=== PATIENT | male | born 1970 | race Caucasian/White ===

== ENCOUNTER 2016-12-13 20:14 | Day surgery (SDC) | payer OTHER, SELFPAY ==
[~2016-12-13 20:14] MED LIST: ISOVUE-370 76%-LOCM 1 ML ONE
[2016-12-13 20:34] LABS: Hematocrit 48.7 % (42.0-52.0); Mean Platelet Volume 8.2 fL (7.4-10.4); White Blood Cell (WBC) Count 17.3 thou/uL (4.8-10.8)
[2016-12-13 20:43] LABS: PTT 24.5 SEC (22.9-36.1); Prothrombin Time 12.6 SEC (12.0-14.7)
[2016-12-13 20:44] LABS: ALT (SGPT) 41 U/L (8-55); AST (SGOT) 21 U/L (5-34); Alkaline Phosphatase 66 U/L (40-150); Anion Gap 15 mmol/L (10-20); BUN (Urea Nitrogen) 16 mg/dL (8.9-20.6); Bilirubin, Total 0.3 mg/dL (0.2-1.2); Calc. Creatinine Clearance 0 mL/min (70-130); Calcium 9.6 mg/dL (7.8-10.44); Carbon Dioxide 22 mmol/L (22-29); Chloride 108 mmol/L (98-107); Estimated GFR-MDRD Greater than 90; Protein, Total 7.3 g/dL (6.0-8.3)
[2016-12-13 20:49] LABS: Troponin I Less than 0.010 ng/mL (< 0.028)
[2016-12-13 20:52] LABS: Magnesium 2.2 mg/dL (1.6-2.6); Neutrophil 61 % (42-75)
[2016-12-13] MEDS ORDERED: Nitroglycerin 100MG/250ML BOT 250 ML ONE (20:52)
[2016-12-13] MEDS ORDERED: Heparin 10,000 UNITS/1 ML VIAL ONE (20:52)
[2016-12-13] MEDS ORDERED: Nitroglycerin 50 MG/250 ML BOT 250 ML ONE (20:58)
[2016-12-13] MEDS ORDERED: Morphine Sulfate 2 MG/ML SYRINGE ONE (21:00)
[2016-12-13] MEDS ORDERED: Ondansetron HCl/PF 4 MG/2 ML Vial ONE (21:02)
--- NOTE | 2016-12-13 21:07 | HP ---
DATE OF CONSULTATION: 12/13/2016 CHIEF COMPLAINT: Acute myocardial infarction. HISTORY OF PRESENT ILLNESS: Mr. Schneider is a 46-year-old gentleman with no significant past medical hi story, recently presented with chest pain. His and he states he has been having intermittent p ain for the last several weeks, then it became constant today about 2 hours prior to presentation. He then proceeded to the emergency room where he was found to have ST segment elevation myocardial i nfarction. PAST MEDICAL HISTORY: None. ALLERGIES: None. MEDICATIONS: None except for vitamins. SOCIAL HISTORY: Positive 1 pack tobacco use. He is currently with 3 children. REVIEW OF SYSTEMS: Ten-point review of systems is reviewed and as above, otherwise negative. PHYSICAL EXAMINATION: GENERAL: Patient is a pleasant male who is in no acute distress. The patient appears his stated ag e. VITAL SIGNS: Blood pressure 170/80, pulse 80, respirations 20. NEUROLOGIC: The patient is alert and oriented times 3 with no focal neurologic deficits. HEENT: Sclerae without icterus. Mouth has moist mucous membranes with normal pallor. NECK: No JVD. Carotid upstroke brisk. No bruits bilaterally. LUNGS: Clear to auscultation with unlabored respirations. BACK: No scoliosis or kyphosis. CARDIAC: Regular rate and rhythm with normal S1 and S2. No S3 or S4 noted. No significant rubs, m urmurs, thrills, or gallops noted throughout the precordium. PMI is not displaced. There is no par asternal heave. ABDOMEN: Soft, nontender, nondistended. No peritoneal signs present. No hepatosplenomegaly. No a bnormal striae. EXTREMITIES: A 2+ femoral and 2+ dorsalis pedis pulses. No cyanosis, clubbing, or edema. SKIN: No gross abnormalities. PERTINENT LABORATORY DATA: Hemoglobin 16.3, creatinine 0.8. IMAGING: EKG normal sinus rhythm with ST segment elevation noted inferiorly with reciprocal changes . IMPRESSION: 1. Acute myocardial infarction. 2. Tobacco abuse. RECOMMENDATIONS: At this point, I would feel the need to proceed with urgent coronary angiography p jessa PCI. I discussed the procedure with both he and his . The risks of the procedure were also discussed. The risks of the procedure include but are not limited to the following: , stroke , [place], need for emergency surgery, loss of limb, bleeding, and infection, as well as a reaction to th e dye causing kidney failure and needing long-term dialysis. I also discussed the risks of PCI to i nclude all of the above including coronary dissection and perforation in addition to acute stent thr ombosis and restenosis. All questions about the procedure were answered. Given the above, the nga ent agreed to proceed with coronary angiography and possible PCI. All questions about the procedure were answered. Given the above, the patient agreed to proceed with the above procedure. He did un dergo a CT scan of his chest and abdomen due to intermittent abdominal pain, which was negative for dissection. Further recommendations were pending the above.
[2016-12-13] MEDS ORDERED: Adenosine 6 MG/2 ML VIAL ONE (21:09)
--- NOTE | 2016-12-13 21:10 | RAD ---
RADIOGRAPH CHEST 1 VIEW: 12/13/16 HISTORY: 46-year-old male with acute chest pain. FINDINGS: There are no air space densities, pulmonary edema, pneumothorax, or cardiomegaly. The lateral costo phrenic angles are sharp. IMPRESSION: No acute cardiopulmonary findings. bettina [] POS: THERON
--- NOTE | 2016-12-13 21:28 | CT ---
CTA THORAX WITH CONTRAST CTA ABDOMEN WITH CONTRAST: 12/13/16 (Computed Tomographic Angiography, chest(noncoronary) with contrast material, and image postprocessi ng) (Computed Tomographic Angiography, abdomen with contrast material, and image postprocessing) HISTORY: 46-year-old male with acute chest pain. TECHNIQUE: IV injection of iodinated contrast: administered Arterial phase bolus chasing technique. Scan acquisition from top of top of aortic arch to iliac crests. Sagittal and coronal 3D MIP reconstructions. FINDINGS: There is no thoracic or abdominal aortic aneurysm, rupture, or dissection. Atherosclerotic plaque is visualized throughout the lower one third of the abdominal aorta, and at the bilateral common iliac arteries. No cardiomegaly, pericardial effusion, pleural effusion, or pneumothorax. The lungs are c lear. No mediastinal or hilar lymphadenopathy. The contrast within the pulmonary arteries is too dil ilya to evaluate for pulmonary thromboembolism. No definite pathology identified, within the limitat ions of an [id number] scan, involving the liver, pancreas, adrenals, kidneys or spleen. No acute findings of the visualized small intestine and large intestine. Pelvis was not included. Mildl y enlarged lymph nodes of the michelle hepatis, nonspecific. IMPRESSION: 1. No aortic dissection, rupture or aneurysm. 2. Atherosclerosis of distal abdominal aorta and common iliac arteries. bettina[] POS: THERON
[2016-12-13] MEDS ORDERED: Mag-Al 1200 mg/1200 mg/30 ML UDCUP PO PRN (21:29)
[2016-12-13] MEDS ORDERED: Milk Of Magnesia 30 ML UDCUP PO PRN (21:29)
[2016-12-13] MEDS ORDERED: traMADol HCl 50 MG TAB PO PRN (21:29)
[2016-12-13] MEDS ORDERED: cloNIDine HCl 0.1 MG TAB PO PRN (21:29)
[2016-12-13] MEDS ORDERED: Zolpidem Tartrate 5 MG TAB PO PRN (21:29)
[2016-12-13] MEDS ORDERED: Sodium Chloride 0.9% 1,000 ML IV SCH (21:30)
[2016-12-13] MEDS ORDERED: Clopidogrel Bisulfate 300 MG TAB ONE (21:34)
[2016-12-13 22:22] VITALS: BMI 31.4
[2016-12-13] MEDS ORDERED: Heparin 10,000 UNITS/ 10 ML VIAL ONE (22:38)
[2016-12-14 00:07] LABS: Troponin I 42.922 ng/mL (< 0.028)
[2016-12-14 04:28] LABS: #Basophils 0.1 thou/uL (0.0-0.2); #Eosinphils 0.3 thou/uL (0.0-0.7); #Lymphocytes 3.4 thou/uL (1.20-3.40); #Monocytes 1.2 thou/uL (0.11-0.59); #Neutrophils 10.7 thou/uL (1.40-6.50); %Basophils 0.4 % (0.0-1.0); %Eosinophils 1.6 % (0.0-10.0); %Lymphocytes 21.9 % (21.0-51.0); %Monocytes 7.9 % (0.0-10.0); Mean Platelet Volume 8.4 fL (7.4-10.4); Red Blood Cell (RBC) Count 4.85 mill/uL (4.70-6.10); White Blood Cell (WBC) Count 15.7 thou/uL (4.8-10.8)
[2016-12-14 04:49] LABS: ALT (SGPT) 82 U/L (8-55); AST (SGOT) 375 U/L (5-34); Alkaline Phosphatase 66 U/L (40-150); Anion Gap 12 mmol/L (10-20); BUN (Urea Nitrogen) 14 mg/dL (8.9-20.6); Bilirubin, Total 0.3 mg/dL (0.2-1.2); Calc. Creatinine Clearance 189 mL/min (70-130); Calcium 9.1 mg/dL (7.8-10.44); Carbon Dioxide 23 mmol/L (22-29); Chloride 108 mmol/L (98-107); Estimated GFR-MDRD Greater than 90; Globulin 2.7 g/dL (2.4-3.5); Protein, Total 6.7 g/dL (6.0-8.3)
[2016-12-14] MEDS: Acetaminophen/Codeine 30-300mg Tablet PO PRN ×3 (05:06→21:44)
[2016-12-14 05:13] LABS: Troponin I 111.371 ng/mL (< 0.028)
[2016-12-14] MEDS ORDERED: Carvedilol 3.125 MG TAB PO SCH ×2 (08:00→10:25)
--- NOTE | 2016-12-14 08:12 | CON ---
DATE OF CONSULTATION: 12/14/2016 SERVICE: Pulmonary Medicine REASON FOR CONSULTATION: ICU patient. HISTORY OF PRESENT ILLNESS: The patient is a 46-year-old white male with past medical history really significant for nothing. That being said, he was diagnosed with hypertension a long time ago, but assume that was because he was in pain at that time and has subsequently discontinued that medication. He does not have a routine follow up with any physicians. In his usual state of health, he started having an abrupt onset of bilateral under arm chest discomfort. He could find no way of getting comfortable. As such, he called 911 and he presented to the emergency department. EKG was performed demonstrating an acute myocardial infarction. He was brought to the [facility] and occluded RCA was identified and subsequently stented. The patient's pain improved dramatically immediately after this stent was placed. That being said , he still continues to have some degree of the same chest discomfort. PAST MEDICAL HISTORY: Hypertension. PAST SURGICAL HISTORY: None. SOCIAL HISTORY: He uses a pack of cigarettes on a daily basis and has a 30-pack -year history of smoking. He is and has 3 children. He denies any significant alcohol or illicit drug use at this time. FAMILY HISTORY: Noncontributory. ALLERGIES: No known drug allergies. MEDICATIONS: List of inpatient medications was reviewed. REVIEW OF SYSTEMS: General, head, ears, eyes, nose, throat, cardiovascular, respiratory, GI, , musculoskeletal, neurologic and skin is negative except as mentioned in the HPI. PHYSICAL EXAMINATION: VITAL SIGNS: Afebrile, blood pressure 158/104, pulse 79, respirations 20, saturation 97% on room air. GENERAL: Patient is awake, alert, in no apparent distress. LUNGS: Excellent air entry. I do not appreciate prolonged expiratory phase, wheezing, rhonchi or crackles. HEART: Normal rate, regular. ABDOMEN: Soft, nontender, nondistended, bowel sounds positive. MUSCULOSKELETAL: No cyanosis or clubbing. No pitting in the bilateral lower extremities. NEUROLOGIC: Grossly nonfocal. LABORATORY DATA: WBC 5.7, hemoglobin 14.9, platelets 312,000. INR 0.9. Basic metabolic profile is essentially unremarkable. AST and ALT are both trending upward. Troponin has increased to 203. Lactate 2.7 and down trending. IMAGIN. Chest x-ray demonstrates low lung volumes which accentuated interstitial markings. I do not appreciate any acute cardiopulmonary abnormalities. Coronal angle is sharp. 1. CT dissection protocol demonstrates no abnormality of the aorta. There is atherosclerosis of the abdominal aorta and common iliac arteries. ASSESSMENT: 1. Acute myocardial infarction, s/p PCI to RCA. 2. Cardiogenic shock, resolved. 3. Shock liver, likely to improve over the next 24-48 hours. 4. Hypertension. PLAN: The patient will be monitored in the ICU in the perioperative period. From a purely respiratory perspective, the patient is stable for transition to the telemetry unit. That being said, because of ongoing chest discomfort it would be reasonable to leave him in the ICU for an additional 24 hours if Cardiology is so inclined. I will continue to follow if he remains in this location. CARLOS ALBERTO
[2016-12-14] MEDS: Clopidogrel Bisulfate 75 MG TAB PO SCH (08:37)
[2016-12-14] MEDS ORDERED: FLU VACC QS2017-18 36 mo. & older 0.5 ML SYRINGE IM ONE (09:00)
[2016-12-14] MEDS ORDERED: Lisinopril 2.5 MG TAB PO SCH ×2 (09:00→10:26)
[2016-12-14] MEDS ORDERED: Lisinopril 5 MG TAB PO SCH (10:30)
[2016-12-14] MEDS ORDERED: Carvedilol 6.25 MG TAB PO SCH (10:30)
[2016-12-14] MEDS: Carvedilol 6.25 MG TAB PO SCH (17:12)
[2016-12-14] MEDS ORDERED: Atorvastatin Calcium 40 MG TAB PO SCH (21:00)
[2016-12-15 05:58] LABS: #Basophils 0.1 thou/uL (0.0-0.2); #Eosinphils 0.4 thou/uL (0.0-0.7); #Lymphocytes 3.9 thou/uL (1.20-3.40); #Neutrophils 7.3 thou/uL (1.40-6.50); %Basophils 0.6 % (0.0-1.0); %Lymphocytes 30.7 % (21.0-51.0); %Monocytes 7.8 % (0.0-10.0); Hematocrit 42.7 % (42.0-52.0); Mean Platelet Volume 8.3 fL (7.4-10.4); Red Blood Cell (RBC) Count 4.58 mill/uL (4.70-6.10); White Blood Cell (WBC) Count 12.6 thou/uL (4.8-10.8)
[2016-12-15 06:23] LABS: ALT (SGPT) 56 U/L (8-55); AST (SGOT) 103 U/L (5-34); Alkaline Phosphatase 52 U/L (40-150); Bilirubin, Direct 0.2 mg/dL (0.1-0.3); Bilirubin, Total 0.5 mg/dL (0.2-1.2); Protein, Total 6.2 g/dL (6.0-8.3)
[2016-12-15 06:26] LABS: ALT (SGPT) 56 U/L (8-55); AST (SGOT) 103 U/L (5-34); Alkaline Phosphatase 52 U/L (40-150); Anion Gap 10 mmol/L (10-20); BUN (Urea Nitrogen) 11 mg/dL (8.9-20.6); Bilirubin, Total 0.5 mg/dL (0.2-1.2); Calc. Creatinine Clearance 199 mL/min (70-130); Calcium 9.1 mg/dL (7.8-10.44); Carbon Dioxide 25 mmol/L (22-29); Chloride 105 mmol/L (98-107); Estimated GFR-MDRD Greater than 90; Globulin 2.5 g/dL (2.4-3.5); Protein, Total 6.3 g/dL (6.0-8.3)
[2016-12-15] MEDS: Clopidogrel Bisulfate 75 MG TAB PO SCH (08:37)
[2016-12-15] MEDS: Carvedilol 6.25 MG TAB PO SCH ×2 (08:37→16:20)
[2016-12-15] MEDS: Lisinopril 5 MG TAB PO SCH (08:38)
[2016-12-15] MEDS: Acetaminophen/Codeine 30-300mg Tablet PO PRN ×3 (08:39→21:38)
--- NOTE | 2016-12-15 16:57 | PRG ---
DATE OF SERVICE: 12/15/2016 SERVICE: Pulmonary Medicine. INTERVAL HISTORY: The patient is doing really well from a respiratory standpoint. He is on room ai r. He has no ongoing chest discomfort. He was able to walk up and down the hallway and even go up and down a couple flights of stairs. He denies any current fevers, chills, nausea, vomiting or over night events. PHYSICAL EXAMINATION: VITAL SIGNS: Afebrile, pulse 74, blood pressure 113/67, respirations 18, saturation 98% on room air . GENERAL: Patient is awake, alert, in no apparent distress. LUNGS: Excellent air entry with no prolonged expiratory phase. There are no wheezing, rhonchi, or crackles are present. HEART: Normal rate, regular. ABDOMEN: Soft, nontender, nondistended, bowel sounds positive. MUSCULOSKELETAL: No cyanosis or clubbing. No pitting in the bilateral lower extremities. NEUROLOGIC: Grossly nonfocal. LABORATORY DATA: WBC 12.6, hemoglobin 13.8, and platelets 264,000. Basic metabolic profile and tracee er function studies are essentially unremarkable with down trending AST and ALT. IMAGING: Echocardiogram demonstrates reduced ejection fraction of 40% and diastolic dysfunction. ASSESSMENT: 1. Acute myocardial infarction, status post percutaneous coronary intervention. 2. Cardiogenic shock, resolved. 3. Shock liver, improving. 4. Hypertension. 5. Tobacco abuse. PLAN: At this point, the patient is stable for discharge from the hospital from a purely respirator y perspective. He no longer has further requirements for inpatient Pulmonary or Critical Care opini on. As such, we will sign off. Please call with additional questions or concerns moving forward. I have counseled him on staying away from cigarettes. He understands that ongoing tobacco use is li nked with higher risk for additional events and progressing lung disease.
[2016-12-16] MEDS: Lisinopril 5 MG TAB PO SCH (09:21)
[2016-12-16] MEDS: Carvedilol 6.25 MG TAB PO SCH ×2 (09:21→16:21)
[2016-12-16] MEDS: Clopidogrel Bisulfate 75 MG TAB PO SCH (09:21)
[2016-12-16 12:24] VITALS: TEMP 97.5
--- NOTE | 2016-12-16 14:11 | PDOC.CTH ---
Cardiology Progress Note - Subjective Patient seen and examined. No new complaints. No overnight events. He denies any CP, pressure, SOB, or palpitations. - Objective Vital Signs Temp Pulse Pulse Pulse Resp BP BP 12/16/16 12:22 97.5 F L 75 16 12/16/16 09:58 69 65 126/75 12/16/16 09:21 75 117/69 12/16/16 08:00 97.6 F 75 16 12/16/16 07:15 97.6 F 75 16 12/16/16 04:19 98.2 F 73 20 BP BP BP Pulse Ox Pulse Ox Pulse Ox 12/16/16 12:22 110/65 98 12/16/16 09:58 124/68 99 98 12/16/16 09:21 12/16/16 08:00 97 12/16/16 07:15 117/69 97 12/16/16 04:19 110/64 97 Weight 227 lb 9.6 oz 12/15/16 12/16/16 12/17/16 06:59 06:59 06:59 Intake Total 1796 1400 Output Total 600 575 Balance 1196 825 - Physical Examination General/Neuro: alert & oriented x3, NAD Neck: no JVD present Lungs: CTA, unlabored respirations Heart: RRR Extremities: other: (no edema) - Telemetry Telemetry Rhythm: NSR - Labs Result Diagrams: 12/15/16 05:18 12/15/16 05:18 Troponin/CKMB CK-MB (CK-2) 203.0 ng/mL (0-6.6) H* 12/14/16 03:26 Troponin I 111.371 ng/mL (< 0.028) H* 12/14/16 03:26 - Assessment/Plan 1. STEMI s/p stent to RCA 2. Tobacco Abuse Plan: Patient is stable and doing well. Remains symptom free. Ok to discharge home on CV meds including ASA, ACEI, BB and plavix. Will defer adding statin at this time pending outpatient workup of chronically elevated LFTs. Patient advised to FU with our office within one week of discharge.
--- NOTE | 2016-12-16 16:14 | DIS ---
DATE OF ADMISSION: 12/13/2016 DATE OF DISCHARGE: 12/16/2016 DISCHARGE DIAGNOSIS: Acute myocardial infarction. PROCEDURE: Coronary angiography with stent placement to the right coronary artery. COMPLICATIONS: None. HOSPITAL COURSE: Mr. Schneider is a pleasant 38-year-old gentleman who presented with acute onset of bryan st pain. He was found to have completely occluded right coronary artery. He also was found to have moderate disease of the left main. He underwent successful stent implantation. This was performed radially. His hospital course was otherwise unremarkable. He did have one brief run of nonsustained VT. It w as within the 48 hour window post-VA. He was asymptomatic. His LFTs did increase likely due to rec ent [facility]. His LFTs have decreased accordingly. DISCHARGE MEDICATIONS: Include Coreg 6.25 b.i.d., Plavix 75 q.a.m., aspirin 81 q.a.m., lisinopril 5 daily. Hold statin therapy due to elevated LFTs. We will be reevaluated as an outpatient. Follow up with Dr. Klarissa Taylor in 1-2 weeks.
[2016-12-16 16:22] VITALS: BP 116/65
== END 2016-12-16 16:35 | disposition home or self-care (01) ==
LOC: ERS 20:14 → CCL 20:51 → CCU 21:49 → UNDOADMIN 21:49 → CCU 21:49 → 2NO 12-14 13:13 → CCU 12-14 13:13 → 2NO 12-14 13:13 → CCL 12-16 16:35 → UNDODISIN 12-16 16:35
PROVIDERS: ATTEND Internal Medicine Cardiovascular Disease
DX: I21.11 ST elevation (STEMI) myocardial infarction involving right coronary artery (principal); I08.1 Rheumatic disorders of both mitral and tricuspid valves; R57.0 Cardiogenic shock; K72.00 Acute and subacute hepatic failure without coma; I10 Essential (primary) hypertension; F17.210 Nicotine dependence, cigarettes, uncomplicated; Z79.02 Long term (current) use of antithrombotics/antiplatelets; Z79.82 Long term (current) use of aspirin; Z79.899 Other long term (current) drug therapy
CPT/HCPCS: 36415; 36416; 71010; 71275; 80053; 82553; 83605; 83690; 83735; 84484; 85025; 85347; 85610; 85730; 92928; 93005; 93010; 93306; 93454; 93798; 96374; 96375; C1725; C1769; C1876; C1887; J0153; J1644; J2270; J2405

== ENCOUNTER 2021-09-01 07:11 | Emergency (ER) | payer OTHER ==
[2021-09-01 07:58] LABS: #Eosinphils 0.3 thou/uL (0.0-0.7); #Lymphocytes 2.1 thou/uL (1.20-3.40); #Monocytes 1.2 thou/uL (0.11-0.59); #Neutrophils 12.4 thou/uL (1.40-6.50); %Basophils 0.2 % (0.0-1.0); %Eosinophils 2.1 % (0.0-10.0); %Lymphocytes 13.2 % (21.0-51.0); %Monocytes 7.5 % (0.0-10.0); Hemoglobin 15.4 g/dL (14.0-18.0); Mean Corpuscular HGB CONC 32.9 g/dL (32.0-36.0); Mean Corpuscular Hemoglobin 31.3 pg (27.0-31.0); Mean Corpuscular Volume 95.2 fL (78.0-98.0); Mean Platelet Volume 7.9 fL (7.4-10.4); Platelet Count 333 thou/uL (130-400); RBC Distribution Width 12.2 % (11.5-14.5); Red Blood Cell (RBC) Count 4.92 mill/uL (4.70-6.10); White Blood Cell (WBC) Count 16.2 thou/uL (4.8-10.8)
[2021-09-01] MEDS ORDERED: ISOVUE-370 76%-LOCM 1 ML ONE (08:00)
[2021-09-01 08:10] LABS: Bacteria/HPF None Seen HPF (None Seen); Bilirubin Negative (Negative); Blood, Urine 1+ (Negative); Clarity Clear (Clear); Glucose, Urine (Dipstick) Normal (Negative); Ketone, Urine Negative (Negative); Leukocyte Negative Leu/uL (Negative); Nitrite Negative (Negative); Protein, Urine (Dipstick) Negative (Neg-Trace); RBC/HPF 0-3 HPF (0-3); Specific Gravity, Urine 1.034 (1.002-1.036); Squamous Epithelial None Seen HPF (0-3); Urobilinogen Normal mg/dL (Less than 2); WBC/HPF 0-3 HPF (0-3); pH, Urine 5.5 (5.0-9.0)
[2021-09-01 08:18] LABS: ALT (SGPT) 45 U/L (8-55); AST (SGOT) 27 U/L (5-34); Albumin 4.8 g/dL (3.5-5.0); Alkaline Phosphatase 66 U/L (40-110); Anion Gap 16 mmol/L (10-20); BUN (Urea Nitrogen) 24 mg/dL (8.4-25.7); Bilirubin, Total 0.3 mg/dL (0.2-1.2); Calc. Creatinine Clearance 0 mL/min (70-130); Calcium 10.1 mg/dL (7.8-10.44); Carbon Dioxide 22 mmol/L (22-29); Chloride 108 mmol/L (98-107); Estimated GFR 64; Glucose 138 mg/dL (70-105); Potassium 4.5 mmol/L (3.5-5.1); Protein, Total 7.8 g/dL (6.0-8.3); Sodium 141 mmol/L (136-145)
== END 2021-09-01 08:40 | disposition home or self-care (01) ==
LOC: ERS 07:11
DX: N13.2 Hydronephrosis with renal and ureteral calculous obstruction (principal); I10 Essential (primary) hypertension; F17.200 Nicotine dependence, unspecified, uncomplicated; Z95.5 Presence of coronary angioplasty implant and graft; Z79.82 Long term (current) use of aspirin; Z79.899 Other long term (current) drug therapy
CPT/HCPCS: 74177; 80053; 81003; 81015; 85025; Q9966

== ENCOUNTER 2024-11-02 12:58 | Outpatient (CLI) | payer OTHER | END 2024-11-02 12:59 | disposition home or self-care (01) | LOC: ULT 12:58 | PROVIDERS: ATTEND Internal Medicine Nephrology | DX: N18.1 Chronic kidney disease, stage 1 (principal) | CPT/HCPCS: 76770 ==